=== PATIENT | female | born 1955 | race Caucasian/White ===

== ENCOUNTER 2016-10-27 17:05 | Emergency (ER) | payer OTHER ==
[~2016-10-27] VITALS: Ht 158.8 cm; Wt 51.7 kg
--- NOTE | 2016-10-27 17:43 | ED DYSPNEA/ASTHMA COMPLAINT ---
History of Present Illness General Chief Complaint: General Adult Stated Complaint: PT WAS COUGHING UP BLOOD Vital Signs & Intake/Output Vital Signs & Intake/Output Vital Signs Date Time Temp Pulse Resp B/P B/P Pulse O2 O2 Flow FiO2 Mean Ox Delivery Rate 10/27 1712 97.6 78 18 128/69 97 Room Air Room Air Allergies Coded Allergies: shellfish derived (Severe, ANAPHYLAXIS 10/27/16) ciprofloxacin (UNKNOWN 10/27/16) lactose (GI SYMPTOMS 10/27/16) Reconcile Medications Cat's Claw (Unknown Strength) CAPSULE (Unknown Dose) PO DAILY SUPPLEMENT ( Reported) Cholecalciferol (Vitamin D3) (Vitamin D) (Unknown Strength) TABLET (Unknown Dose) PO DAILY SUPPLEMENT (Reported) Iodine (KELP) (Unknown Strength) TABLET (Unknown Dose) PO DAILY SUPPLEMENT ( Reported) [place] Extract (Unknown Strength) CAPSULE (Unknown Dose) PO DAILY SUPPLEMENT (Reported) Ubidecarenone (Co Q-10) (Unknown Strength) CAPSULE (Unknown Dose) PO DAILY SUPPLEMENT (Reported) ZINC (Zinc Chelated) (Unknown Strength) TABLET (Unknown Dose) PO DAILY SUPPLEMENT (Reported) Triage Note: TRIAGe: 61 Y/O FEMALE PRESENTS S/P 1 EPISODE OF HEMOPTYSIS TONIGHT. REPORTS OUT OF THE COUNTRY TO [place] 3 WEEKS AGO. DENIES NIGHT SWEATS. ROOM AIR SPO2 97-98% AT PRESENT. Past History Travel History Traveled to [place] past 21 day No Medical History Cardiovascular: hyperlipidemia Psychosocial History What is your primary language [place]er Tobacco Use: Never used ETOH Use: occasional use Illicit Drug Use: denies illicit drug use Departure Departure Condition: Stable Referrals: CAROL NGUYEN,KARLA Calvert (PCP/Family) Departure Forms: Customer Survey General Discharge Information
[2016-10-27] MEDS ORDERED: ZINC CHELATED50 MG PO (17:51)
[2016-10-27] MEDS ORDERED: VITAMIN D1000 UNIT PO (17:51)
[2016-10-27] MEDS ORDERED: OLIVE LEAF EXT250 MG PO (17:52)
[2016-10-27] MEDS ORDERED: CAT'S CLAW500 MG PO (17:52)
[2016-10-27] MEDS ORDERED: CO Q-10200 MG PO (17:52)
[2016-10-27] MEDS ORDERED: KELP150 MCG PO (17:53)
--- NOTE | 2016-10-27 18:15 | ED DYSPNEA/ASTHMA COMPLAINT ---
History of Present Illness General Chief Complaint: General Adult Stated Complaint: PT WAS COUGHING UP BLOOD Source: patient, family, old records Exam Limitations: no limitations Vital Signs & Intake/Output Vital Signs & Intake/Output Vital Signs Date Time Temp Pulse Resp B/P B/P Pulse O2 O2 Flow FiO2 Mean Ox Delivery Rate 10/27 1916 Room Air 10/27 1916 97.6 80 18 120/70 100 Room Air 10/27 1845 97.2 70 17 126/62 99 Room Air 10/27 1712 97.6 78 18 128/69 97 Room Air Room Air ED Intake and Output 10/28 0000 10/27 1200 Intake Total Output Total Balance Patient 51.71 kg Weight Weight Reported by Patient Measurement Method Allergies Coded Allergies: shellfish derived (Severe, ANAPHYLAXIS 10/27/16) ciprofloxacin (UNKNOWN 10/27/16) lactose (GI SYMPTOMS 10/27/16) Reconcile Medications Cat's Claw (Unknown Strength) CAPSULE (Unknown Dose) PO DAILY SUPPLEMENT ( Reported) Cholecalciferol (Vitamin D3) (Vitamin D) (Unknown Strength) TABLET (Unknown Dose) PO DAILY SUPPLEMENT (Reported) Iodine (KELP) (Unknown Strength) TABLET (Unknown Dose) PO DAILY SUPPLEMENT ( Reported) [place] Extract (Unknown Strength) CAPSULE (Unknown Dose) PO DAILY SUPPLEMENT (Reported) Ubidecarenone (Co Q-10) (Unknown Strength) CAPSULE (Unknown Dose) PO DAILY SUPPLEMENT (Reported) ZINC (Zinc Chelated) (Unknown Strength) TABLET (Unknown Dose) PO DAILY SUPPLEMENT (Reported) Triage Note: TRIAGe: 61 Y/O FEMALE PRESENTS S/P 1 EPISODE OF HEMOPTYSIS TONIGHT. REPORTS OUT OF THE COUNTRY TO [place] 3 WEEKS AGO. DENIES NIGHT SWEATS. ROOM AIR SPO2 97-98% AT PRESENT. Triage Nurses Notes Reviewed? yes HPI: 61F PMH CHRONIC SINUSITIS, CHRONIC COUGH SINCE SHE WAS A LITTLE GIRL PRESENTING WITH SINGLE EPISODE OF HEMOPTYSIS. REPORTS THAT SHE TYPICALLY COUGHS ALL DAY LONG DUE TO POST-NASAP DRIP. SMALL AMOUNT OF BLOOD MIXED WITH WHITE PHLEGM, NO HISTORY OF HEMOPTYSIS, NEVER-SMOKER. FLEW FROM [place] 3 WEEKS AGO. DENIES LEG SWELLING. DOES NOT TAKE OCP. NO FAMILY HISTORY OF LUNG CANCER Past History Travel History Traveled to [place] past 21 day No Medical History Any Pertinent Medical History? see below for history Cardiovascular: hyperlipidemia Surgical History Surgical History: non-contributory Psychosocial History What is your primary language Lao Tobacco Use: Never used ETOH Use: occasional use Illicit Drug Use: denies illicit drug use Family History Hx Contributory? No Review of Systems Review of Systems Constitutional: Reports: see HPI. EENTM: Reports: see HPI. Respiratory: Reports: see HPI. Cardiovascular: Reports: see HPI. GI: Reports: no symptoms. Genitourinary: Reports: no symptoms. Musculoskeletal: Reports: no symptoms. Skin: Reports: no symptoms. Neurological/Psychological: Reports: no symptoms. Hematologic/Endocrine: Reports: no symptoms. Immunologic/Allergic: Reports: no symptoms. All Other Systems: Reviewed and Negative Physical Exam Physical Exam General Appearance: well developed/nourished, no apparent distress, alert, awake Head: atraumatic, normal appearance Eyes: Bilateral: normal appearance. Ears, Nose, Throat: normal pharynx, normal ENT inspection Neck: normal inspection, supple Respiratory: crackles, rhonchi Cardiovascular: regular rate/rhythm Gastrointestinal: soft, non-tender Extremities: normal inspection, normal range of motion Neurologic/Psych: no motor/sensory deficits, awake, alert, oriented x 3 Skin: intact Core Measures ACS in differential dx? No Severe Sepsis Present: No Septic Shock Present: No Progress Differential Diagnosis: asthma, AMI, altitude sickness, bronchitis, costochondritis, CHF, COPD, musculoskeletal pain, pericarditis, pulmonary embolism, pneumonia, pneumothorax, rib fracture, unstable angina Plan of Care: Orders Procedure Date/time Status B-TYPE NATRIURETIC PEP (BNP) 10/27 1816 Complete D-DIMER 10/28 1815 Complete COMPREHENSIVE METABOLIC PANEL 10/28 1815 Complete CBC WITHOUT DIFFERENTIAL 10/28 1815 Complete Laboratory Tests 10/27/161823: Dbf-B-Yrzkvowvxbk Pept 56.0 10/27/16 182: Anion Gap 10, Estimated GFR > 60, BUN/Creatinine Ratio 11.7, Glucose 96, Calcium 9.3, Total Bilirubin 0.3, AST 26, ALT 36, Alkaline Phosphatase 53, Total Protein 7.2, Albumin 4.4, Globulin 2.8, Albumin/Globulin Ratio 1.6, D-Dimer High Sensitivty < 200, CBC w Diff NO MAN DIFF REQ, RBC 3.92 L, MCV 90.0, MCH 30.4, RDW 13.5, MPV 8.1, Gran % 51.2, Lymphocytes % 34.1, Monocytes % 10.0 H, Eosinophils % 3.9, Basophils % 0.8, Absolute Granulocytes 2.5, Absolute Lymphocytes 1.6, Absolute Monocytes 0.5, Absolute Eosinophils 0.2, Absolute Basophils 0, LUISITO MCHC 33.8 D-DIMER NEGATIVE, CXR NEGATIVE, CBC NEGATIVE, CMP NEGATIVE. LOW PROBABILITY OF PE OR MASS, MORE LIKELY DUE TO CHRONIC COUGH. WILL DISCHARGE PATIENT HOME AND REFER TO PULMONARY CLINIC FOR FURTHER MAANGEMENT. RETURN TO ED IF HEMOPTYSIS PERSISTS. (KARMA NGUYEN,ERNESTO) Diagnostic Imaging: Viewed by Me: Radiology Read. Discussed w/RAD: Radiology Read. Radiology Impression: PATIENT: CRISTY BROWN PRESENT AGE: 61 PATIENT ACCOUNT NO: [id number] : 56 LOCATION: [facility] ORDERING PHYSICIAN: ERNESTO PARADA MD SERVICE DATE: 10/27/16 EXAM TYPE: RAD - XRY-CHEST XRAY, PA AND LATERAL EXAMINATION: XR CHEST CLINICAL INFORMATION: Cough and hemoptysis. COMPARISON: None TECHNIQUE: 2 views of the chest were obtained. FINDINGS: No significant abnormality is noted involving the heart, lungs, mediastinum, bony thorax or soft tissues. IMPRESSION: Unremarkable chest examination. CXR Impression: no acute abnormality, no infiltrates, normal size heart, normal mediastinum Initial ED EKG: NOT DONE Departure Departure Time of Disposition: 1924 Disposition: HOME OR SELF CARE Condition: Stable Clinical Impression Primary Impression: Hemoptysis Secondary Impressions: Chronic sinusitis Referrals: Amee SHEPHERD MD, MD,KARLA Calvert (PCP/Family) Additional Instructions: FOLLOW UP WITH DR. SHEPHERD FOR A NEW PULMONOLOGY VISIT. IF YOU COUGH UP BLOOD AGAIN, COME BACK TO EMERGENCY ROOM. IF YOU FEEL CHEST PAIN, LIGHTHEADED, PALPITATIONS, COME BACK TO EMERGENCY ROOM. CONTINUE YOUR HOME MEDICATIONS. AVOID ASPIRIN AND HERBAL SUPPLEMENTS THAT CAN THIN THE BLOOD. Departure Forms: Customer Survey General Discharge Information Critical Care Note Critical Care Note Critical Care Time: 30-74 min
[2016-10-27 18:35] LABS: ABSOLUTE BASOPHIL COUNT 0 /CUMM (0.0-0.2); ABSOLUTE EOSINOPHIL COUNT 0.2 /CUMM (0.0-0.7); ABSOLUTE GRANULOCYTE CT 2.5 /CUMM (1.4-6.5); ABSOLUTE LYMPH COUNT 1.6 /CUMM (1.2-3.4); ABSOLUTE MONOCYTE COUNT 0.5 /CUMM (0.10-0.60); BASOPHIL % 0.8 % (0.0-2.0); EOSINOPHIL % 3.9 % (0-5); GRANULOCYTE % 51.2 % (42.2-75.2); HEMATOCRIT 35.3 % (37-47); MEAN CORPUSCULAR HGB 30.4 PG (27.0-31.0); MEAN CORPUSCULAR HGB CONC 33.8 G/DL (33.0-37.0); MEAN PLATELET VOLUME 8.1 FL (7.4-10.4); PLATELET COUNT 232 /CUMM (130-400); RBC DISTRIBUTION WIDTH 13.5 % (11.5-14.5); RED BLOOD CELL CT 3.92 /CUMM (4.20-5.40); WHITE BLOOD CELL COUNT 4.8 /CUMM (4.8-10.8)
--- NOTE | 2016-10-27 18:58 | RADIOLOGY REPORT ---
EXAMINATION: XR CHEST CLINICAL INFORMATION: Cough and hemoptysis. COMPARISON: None TECHNIQUE: 2 views of the chest were obtained. FINDINGS: No significant abnormality is noted involving the heart, lungs, mediastinum, bony thorax or soft tissues. IMPRESSION: Unremarkable chest examination.
[2016-10-27 19:17] VITALS: BP 120/70
== END 2016-10-27 19:49 ==
LOC: ERH 17:05
PROVIDERS: Internal Medicine
DX: R04.2 Hemoptysis (principal); J32.9 Chronic sinusitis, unspecified